=== PATIENT | female | born 1985 | race Caucasian/White ===

== ENCOUNTER 2019-05-25 19:00 | Inpatient (IN) | payer OTHER ==
[~2019-05-25] VITALS: Ht 172.7 cm; Wt 76.3 kg
[~2019-05-25 19:00] MED LIST: ETOMIDATE 20 MG/10 ML ONE; PROPOFOL 10 MG/ML, 100ML IV ONE; SUCCINYLCHOLINE 20 MG/ML, 10ML ONE
--- NOTE | 2019-05-25 19:08 | NUR ---
Suspected OD bib [facility]. Ingested unknown medication while in custody @ shelter. Became unresponsive, some response from narcan admin [place] en route. Arrives lethargic, mildly arousable to painful stimuli. Narcan 2mg given at time of arrival w/ little response. Not clearing secretions. RSI meds given, intubated w/out difficulty or prolonged hypoxia by Dr. Abbott. 7.5ETT 22 cm @ lips confirmed by ETCO2 & = B breath sounds.
[2019-05-25] MEDS ORDERED: PROPOFOL 100 ML IV PRN (19:17)
[2019-05-25 19:27] LABS: BASOPHILS # (AUTO) 0.02 x10^3/uL (0-0.1); BASOPHILS % (AUTO) 0 % (0-1); EOSINOPHILS # (AUTO) 0.02 x10^3/uL (0-0.4); EOSINOPHILS % (AUTO) 0 % (1-7); LYMPHOCYTES # (AUTO) 1.35 x10^3/uL (1-3.4); LYMPHOCYTES % (AUTO) 12 % (22-44); MD NO; MEAN CORPUSCULAR HEMOGLOBIN 30.8 pg (27.0-34.8); MEAN CORPUSCULAR HGB CONC 33.9 g/dL (32.4-35.8); MEAN CORPUSCULAR VOLUME 91.1 fL (80-100); MEAN PLATELET VOLUME 7.2 fL (7.4-10.4); MONOCYTES # (AUTO) 0.17 x10^3/uL (0.2-0.8); MONOCYTES % (AUTO) 2 % (2-9); NEUTROPHILS # (AUTO) 9.62 x10^3/uL (1.8-6.8); NEUTROPHILS % (AUTO) 86 % (42-75); PLATELET COUNT 315 x10^3/uL (130-400); RED BLOOD COUNT 4.98 x10^6/uL (3.82-5.3); RED CELL DISTRIBUTION WIDTH 13.5 % (9.6-15.2)
[2019-05-25] MEDS ORDERED: PLEASE ENTER ALLERGIES MC SCH (19:30)
[2019-05-25] MEDS ORDERED: NALOXONE 1 MG/ML, 2ML IVPush ONE (19:30)
[2019-05-25 19:37] LABS: ANION GAP 9 mmol/L (5-15); CALCIUM 8.1 mg/dL (8.5-10.1); CHLORIDE 111 mmol/L (98-107)
[2019-05-25 19:41] LABS: ALANINE AMINOTRANSFERASE 28 U/L (12-78); ALKALINE PHOSPHATASE 55 U/L (45-117); BILIRUBIN,TOTAL 0.3 mg/dL (0.2-1.0); CREATININE 1.01 mg/dL (0.55-1.02); TOTAL PROTEIN 7.9 g/dL (6.4-8.2)
[2019-05-25 19:42] LABS: SALICYLATE LEVEL < 1.7 mg/dL (2.8-20.0)
--- NOTE | 2019-05-25 19:47 | NUR ---
PT STABLE ON VENT, ABG'S BEING DRAWN NOW, PT TO CT AT THIS TIME.
[2019-05-25 20:01] LABS: CULTURE INDICATED? YES; MICROSCOPIC INDICATED
[2019-05-25 20:06] LABS: AMPHETAMINE SCREEN, URINE Positive (Negative); BARBITURATE SCREEN, URINE Negative (Negative); BENZODIAZEPINE SCREEN, URINE Negative (Negative); CANNABINOID SCREEN, URINE Negative (Negative); COCAINE SCREEN, URINE Negative (Negative); METHADONE SCREEN, URINE Negative (Negative); OPIATE SCREEN, URINE Negative (Negative)
[2019-05-25] MEDS ORDERED: NALOXONE 1 MG/ML, 2ML ONE (20:16)
--- NOTE | 2019-05-25 20:16 | NUR ---
REPORT RECED FROM JOSE INTUBATED SEDATED ON PROPOFOL VSS STABLE AFEBRILE VENT SETTING AC 22 TV 450 OXYGEN 100% PEEP 5 GUARD AT BED SIDE
[2019-05-25] MEDS ORDERED: CEFTRIAXONE PMX 1GM/50ML 50 ML IV ONE (20:30)
[2019-05-25] MEDS ORDERED: SODIUM CHLORIDE 0.9% 1,000ML IVBOLUS ONE ×2 (20:30)
[2019-05-25] MEDS ORDERED: CEFTRIAXONE PMX 1GM/50ML 50 ML ONE (20:53)
--- NOTE | 2019-05-25 21:14 | NUR ---
REPORT GIVEN TO JUDY AFTER DR GONZALEZ SAW PT AT BEDSIDE VENT SETTING WAS CHANGED BY DR GONZALEZ TO AC OF 16 AND 70% OXYGEN PT IS STILL WELL SEDATED BY PROPOFOL DURING THE TRANSPORTATION VSS STABLE
[2019-05-25] MEDS ORDERED: PHARMACY MAY ADJ FOR RENAL FX MC SCH (21:30)
[2019-05-25] MEDS ORDERED: FAMOTIDINE 20 MG/2 ML IVPush SCH (21:30)
[2019-05-25] MEDS ORDERED: THIAMINE 200 MG in SODIUM CHLORIDE 0.9% 50 ML IV ONE (21:30)
[2019-05-25] MEDS ORDERED: ONDANSETRON 2MG/ML, 2ML IVPush PRN (21:30)
[2019-05-25] MEDS ORDERED: LIDOCAINE-MPF 1%, 2ML ENDO PRN (21:30)
[2019-05-25] MEDS: FAMOTIDINE 20 MG/2 ML IV SCH (23:03)
[2019-05-25] MEDS: HEPARIN 5,000 UNITS/ML, 1ML SQ SCH (23:04)
[2019-05-25] MEDS: SODIUM CHLORIDE 0.9% 1,000 ML IV SCH (23:04)
[2019-05-26 00:15] VITALS: BP 128/80
[2019-05-26] MEDS: PROPOFOL 100 ML IV PRN ×5 (02:16→14:31)
[2019-05-26 04:00] VITALS: BP 101/46
[2019-05-26 04:38] LABS: BASOPHILS % (AUTO) 0 % (0-1); EOSINOPHILS % (AUTO) 0 % (1-7); LYMPHOCYTES # (AUTO) 0.63 x10^3/uL (1-3.4); LYMPHOCYTES % (AUTO) 5 % (22-44); MD NO; MEAN CORPUSCULAR HEMOGLOBIN 30.3 pg (27.0-34.8); MEAN CORPUSCULAR HGB CONC 33.4 g/dL (32.4-35.8); MEAN CORPUSCULAR VOLUME 90.7 fL (80-100); MEAN PLATELET VOLUME 7.9 fL (7.4-10.4); MONOCYTES # (AUTO) 0.53 x10^3/uL (0.2-0.8); MONOCYTES % (AUTO) 4 % (2-9); NEUTROPHILS # (AUTO) 12.08 x10^3/uL (1.8-6.8); NEUTROPHILS % (AUTO) 91 % (42-75); PLATELET COUNT 272 x10^3/uL (130-400); RED BLOOD COUNT 4.08 x10^6/uL (3.82-5.3); RED CELL DISTRIBUTION WIDTH 13.9 % (9.6-15.2)
[2019-05-26 04:40] LABS: ALANINE AMINOTRANSFERASE 26 U/L (12-78); ANION GAP 8 mmol/L (5-15); CALCIUM 7.6 mg/dL (8.5-10.1); CHLORIDE 115 mmol/L (98-107); CREATININE 0.71 mg/dL (0.55-1.02)
[2019-05-26 04:43] LABS: ALKALINE PHOSPHATASE 44 U/L (45-117); BILIRUBIN,TOTAL 0.3 mg/dL (0.2-1.0); TOTAL PROTEIN 6.1 g/dL (6.4-8.2)
[2019-05-26] MEDS: HEPARIN 5,000 UNITS/ML, 1ML SQ SCH ×3 (06:22→22:46)
[2019-05-26] MEDS: SODIUM CHLORIDE 0.9% 1,000 ML IV SCH ×2 (07:29→16:29)
[2019-05-26] MEDS: DEXMEDETOMIDINE 400 MCG in SODIUM CHLORIDE 0.9% 96 ML IV PRN ×3 (08:56→22:47)
[2019-05-26] MEDS: FENTANYL PF 100 MCG/2ML IVPush PRN ×3 (08:56→14:30)
[2019-05-26] MEDS: FAMOTIDINE 20 MG/2 ML IV SCH ×2 (08:57→21:02)
[2019-05-26] MEDS: CEFTRIAXONE PMX 1GM/50ML 50 ML IV SCH (21:02)
[2019-05-27] MEDS: FENTANYL PF 100 MCG/2ML IVPush PRN (00:22)
[2019-05-27] MEDS: SODIUM CHLORIDE 0.9% 1,000 ML IV SCH ×2 (00:22→08:23)
[2019-05-27] MEDS: DEXMEDETOMIDINE 400 MCG in SODIUM CHLORIDE 0.9% 96 ML IV PRN (04:25)
[2019-05-27 04:50] LABS: BASOPHILS # (AUTO) 0.03 x10^3/uL (0-0.1); BASOPHILS % (AUTO) 0 % (0-1); EOSINOPHILS # (AUTO) 0.03 x10^3/uL (0-0.4); EOSINOPHILS % (AUTO) 0 % (1-7); LYMPHOCYTES # (AUTO) 1.59 x10^3/uL (1-3.4); LYMPHOCYTES % (AUTO) 22 % (22-44); MD NO; MEAN CORPUSCULAR HGB CONC 33.8 g/dL (32.4-35.8); MEAN CORPUSCULAR VOLUME 91.5 fL (80-100); MEAN PLATELET VOLUME 7.4 fL (7.4-10.4); MONOCYTES # (AUTO) 0.35 x10^3/uL (0.2-0.8); MONOCYTES % (AUTO) 5 % (2-9); NEUTROPHILS # (AUTO) 5.18 x10^3/uL (1.8-6.8); NEUTROPHILS % (AUTO) 72 % (42-75); PLATELET COUNT 200 x10^3/uL (130-400); RED BLOOD COUNT 4.14 x10^6/uL (3.82-5.3); RED CELL DISTRIBUTION WIDTH 14.1 % (9.6-15.2)
[2019-05-27 04:56] LABS: ANION GAP 6 mmol/L (5-15); CHLORIDE 115 mmol/L (98-107)
[2019-05-27 04:58] LABS: CREATININE 0.69 mg/dL (0.55-1.02)
[2019-05-27] MEDS: HEPARIN 5,000 UNITS/ML, 1ML SQ SCH ×3 (06:00→21:41)
[2019-05-27] MEDS: FAMOTIDINE 20 MG/2 ML IV SCH (09:26)
[2019-05-27 11:34] VITALS: BP 100/65
[2019-05-27 12:20] VITALS: BP 117/76
[2019-05-27 19:02] VITALS: BP 97/59
[2019-05-27] MEDS: CEFTRIAXONE PMX 1GM/50ML 50 ML IV SCH (21:41)
[2019-05-27] MEDS: ACETAMINOPHEN 325 MG TABLET PO PRN (22:32)
[2019-05-28 00:46] VITALS: BP 109/69
[2019-05-28 05:17] LABS: BASOPHILS # (AUTO) 0.04 x10^3/uL (0-0.1); BASOPHILS % (AUTO) 1 % (0-1); EOSINOPHILS # (AUTO) 0.12 x10^3/uL (0-0.4); EOSINOPHILS % (AUTO) 2 % (1-7); LYMPHOCYTES # (AUTO) 1.62 x10^3/uL (1-3.4); LYMPHOCYTES % (AUTO) 25 % (22-44); MD NO; MEAN CORPUSCULAR HEMOGLOBIN 30.9 pg (27.0-34.8); MEAN CORPUSCULAR HGB CONC 33.9 g/dL (32.4-35.8); MEAN CORPUSCULAR VOLUME 91.1 fL (80-100); MEAN PLATELET VOLUME 7.5 fL (7.4-10.4); MONOCYTES # (AUTO) 0.31 x10^3/uL (0.2-0.8); MONOCYTES % (AUTO) 5 % (2-9); NEUTROPHILS # (AUTO) 4.29 x10^3/uL (1.8-6.8); NEUTROPHILS % (AUTO) 67 % (42-75); PLATELET COUNT 201 x10^3/uL (130-400); RED CELL DISTRIBUTION WIDTH 13.7 % (9.6-15.2)
[2019-05-28] MEDS: HEPARIN 5,000 UNITS/ML, 1ML SQ SCH ×3 (05:30→21:08)
[2019-05-28 05:37] LABS: ANION GAP 4 mmol/L (5-15); CALCIUM 8.1 mg/dL (8.5-10.1); CHLORIDE 109 mmol/L (98-107)
[2019-05-28 06:26] VITALS: BP 114/76
[2019-05-28] MEDS ORDERED: POTASSIUM CHLORIDE 20 MEQ TAB.ER.PRT PO ONE (09:30)
[2019-05-28] MEDS: ACETAMINOPHEN 325 MG TABLET PO PRN ×3 (09:42→21:08)
[2019-05-28 12:11] VITALS: BP 117/77
[2019-05-28] MEDS: CEFTRIAXONE PMX 1GM/50ML 50 ML IV SCH (21:08)
[2019-05-29] VITALS (9 sets, daily range): BP systolic 100–138; BP diastolic 64–94
[2019-05-29 05:31] LABS: BASOPHILS # (AUTO) 0.02 x10^3/uL (0-0.1); BASOPHILS % (AUTO) 0 % (0-1); EOSINOPHILS # (AUTO) 0.13 x10^3/uL (0-0.4); EOSINOPHILS % (AUTO) 2 % (1-7); LYMPHOCYTES # (AUTO) 1.47 x10^3/uL (1-3.4); LYMPHOCYTES % (AUTO) 24 % (22-44); MD NO; MEAN CORPUSCULAR HEMOGLOBIN 30.3 pg (27.0-34.8); MEAN CORPUSCULAR HGB CONC 33.4 g/dL (32.4-35.8); MEAN CORPUSCULAR VOLUME 90.5 fL (80-100); MEAN PLATELET VOLUME 7.3 fL (7.4-10.4); MONOCYTES # (AUTO) 0.31 x10^3/uL (0.2-0.8); MONOCYTES % (AUTO) 5 % (2-9); NEUTROPHILS # (AUTO) 4.12 x10^3/uL (1.8-6.8); NEUTROPHILS % (AUTO) 68 % (42-75); PLATELET COUNT 221 x10^3/uL (130-400); RED BLOOD COUNT 4.54 x10^6/uL (3.82-5.3); RED CELL DISTRIBUTION WIDTH 13.8 % (9.6-15.2)
[2019-05-29 05:34] LABS: ANION GAP 6 mmol/L (5-15); CALCIUM 8.3 mg/dL (8.5-10.1); CHLORIDE 107 mmol/L (98-107)
[2019-05-29 05:36] LABS: CREATININE 0.76 mg/dL (0.55-1.02)
[2019-05-29] MEDS: HEPARIN 5,000 UNITS/ML, 1ML SQ SCH (06:30)
[2019-05-29] MEDS: ACETAMINOPHEN 325 MG TABLET PO PRN (08:38)
[2019-05-29] MEDS ORDERED: CEFD300C37 PO (09:46)
--- NOTE | 2019-05-29 10:36 | NUR ---
FALL, NO HIGH RISK MEDS, PT ON HEPARIN
== END 2019-05-29 14:10 | disposition home or self-care (01) | DRG 208 ==
LOC: ED 20:42 → CCU 21:12 → 4NE 05-27 11:13
PROVIDERS: ADMIT Family Medicine; ATTEND Hospitalist
PROC: 0D9670Z Drainage of Stomach with Drainage Device, Via Natural or Artificial Opening (ICD-10-PCS; principal; 2019-05-25)
PROC: 5A1945Z Respiratory Ventilation, 24-96 Consecutive Hours (ICD-10-PCS; 2019-05-25)
PROC: 0BH17EZ Insertion of Endotracheal Airway into Trachea, Via Natural or Artificial Opening (ICD-10-PCS; 2019-05-25)
DX: J96.01 Acute respiratory failure with hypoxia (principal); G92 Toxic encephalopathy; J15.4 Pneumonia due to other streptococci; K56.609 Unspecified intestinal obstruction, unspecified as to partial versus complete obstruction; K56.7 Ileus, unspecified; N39.0 Urinary tract infection, site not specified; Z99.11 Dependence on respirator [ventilator] status; B96.20 Unspecified Escherichia coli [E. coli] as the cause of diseases classified elsewhere; F10.129 Alcohol abuse with intoxication, unspecified; F15.129 Other stimulant abuse with intoxication, unspecified; W01.0XXA Fall on same level from slipping, tripping and stumbling without subsequent striking against object, initial encounter; Y04.0XXA Assault by unarmed brawl or fight, initial encounter; Y93.89 Activity, other specified; Y92.89 Other specified places as the place of occurrence of the external cause; Y99.8 Other external cause status
CPT/HCPCS: 31500; 36415; 36600; 74018; 84145; 96361; 96365; 96375; 99291; J3490; 70450; 70486; 71045; 80048; 80053; 80307; 81001; 82140; 82803; 83605; 83735; 84100; 84443; 84478; 84703; 85025; 87040; 87070; 87077; 87081; 87086; 87184; 87186; 87205; 93005; 94002; 94003; G0378; J0696; J1644; J2405; J2704; J3010; J3411; J0330; J2310; J7030